=== PATIENT | male | born 1935 | race Caucasian/White ===

== ENCOUNTER 2020-11-15 13:06 | Observation (INO) | payer MEDICARE ==
[2020-11-15 14:39] LABS: ALT (SGPT) 37 U/L (8-55); AST (SGOT) 41 U/L (5-34); Albumin 3.9 g/dL (3.4-4.8); Alkaline Phosphatase 50 U/L (40-110); Anion Gap 14 mmol/L (10-20); BUN (Urea Nitrogen) 18 mg/dL (8.4-25.7); Bilirubin, Total 0.4 mg/dL (0.2-1.2); Calc. Creatinine Clearance 0 mL/min (70-130); Calcium 8.9 mg/dL (7.8-10.44); Carbon Dioxide 25 mmol/L (23-31); Chloride 104 mmol/L (98-107); Globulin 3.5 g/dL (2.4-3.5); Glucose 129 mg/dL (83-110); Potassium 4.2 mmol/L (3.5-5.1); Protein, Total 7.4 g/dL (5.8-8.1); Sodium 139 mmol/L (136-145)
[2020-11-15 14:44] LABS: Band 9 % (5-11); Hemoglobin 15.6 g/dL (14.0-18.0); Lymphocytes 18 % (21-51); MDiff Complete? YES; Mean Corpuscular Hemoglobin 31.4 pg (27.0-31.0); Mean Platelet Volume 7.3 fL (7.4-10.4); Monocytes 3 % (0-10); Neutrophil 66 % (42-75); Platelet Count 126 thou/uL (130-400); Platelet Morphology Comment Appears Adequate; RBC Distribution Width 11.7 % (11.5-14.5); Reactive Lymphocytes 4 % (0-10); Red Blood Cell (RBC) Count 4.97 mill/uL (4.70-6.10); White Blood Cell (WBC) Count 4.9 thou/uL (4.8-10.8)
[2020-11-15] MEDS ORDERED: cefTRIAXone\\ROCEPHIN 2 GM VIAL ONE (14:56)
[2020-11-15] MEDS ORDERED: Sodium Chloride 0.9% 1,000 ML ONE (14:56)
[2020-11-15] MEDS ORDERED: Acetaminophen 500 MG TAB ONE (14:56)
[2020-11-15] MEDS ORDERED: Sodium Chloride 0.9% 100 ML ONE (14:56)
[2020-11-15 15:43] LABS: Bilirubin Negative (Negative); Blood, Urine Trace (Negative); Glucose, Urine (Dipstick) Negative (Negative); Ketone, Urine Negative (Negative); Leukocyte Negative (Negative); Nitrite Negative (Negative); Protein, Urine (Dipstick) 100 mg/dL (Neg-Trace); Urobilinogen 0.2 mg/dL (Less than 2); pH, Urine 5.5 (5.0-9.0)
[2020-11-15 15:46] LABS: Bacteria/HPF 1+ HPF (None Seen); Clarity SL HAZY (Clear); Mucous/LPF 1+ LPF (<2+); RBC/HPF 0-3 HPF (0-3); Specific Gravity, Urine 1.028 (1.002-1.036); Squamous Epithelial 0-3 HPF (0-3); Transitional Epithelial 0-3 HPF (None Seen); WBC/HPF 0-3 HPF (0-3)
[2020-11-15] MEDS ORDERED: Sodium Chloride 0.9% 250 ML 250 ML ONE (15:46)
[2020-11-15] MEDS ORDERED: Azithromycin 500 MG VIAL ONE (15:46)
[2020-11-15 16:16] LABS: SARS-CoV-2 NAA Rapid Test DETECTED (NotDetected)
[2020-11-15 17:32] LABS: Lactic Acid 2.2 mmol/L (0.5-2.2)
[2020-11-15 18:43] VITALS: BMI 24.3
[2020-11-15] MEDS ORDERED: Sodium Chloride 0.65% Nasal 44 ML BOT EA NARE PRN (20:28)
[2020-11-15] MEDS ORDERED: Bisacodyl 10 MG SUPP PR PRN (20:28)
[2020-11-15] MEDS ORDERED: Ondansetron ODT 4 MG TAB SL PRN (20:28)
[2020-11-15] MEDS ORDERED: Calcium Carbonate 500 MG ChewTAB PO PRN (20:28)
[2020-11-15] MEDS ORDERED: Senokot S 8.6-50 MG TAB PO PRN (20:28)
[2020-11-15] MEDS ORDERED: cloNIDine 0.1 MG TAB PO PRN (20:28)
[2020-11-15] MEDS ORDERED: Ondansetron PF 4 MG/2 ML Vial IVP PRN (20:28)
[2020-11-15] MEDS ORDERED: Cepastat Lozenges 1 LOZ PO PRN (20:28)
[2020-11-15] MEDS ORDERED: Bisacodyl 5 MG TAB PO PRN (20:28)
[2020-11-15] MEDS ORDERED: Eucerin (Mineral Oil/Petrolatum,White) 30 gm Jar TOP PRN (20:28)
[2020-11-15] MEDS ORDERED: Loperamide HCl 2 MG CAP PO PRN ×2 (20:28)
[2020-11-15] MEDS ORDERED: Artificial Tear Sol 15 ML BOT EA EYE PRN (20:28)
[2020-11-15] MEDS ORDERED: Loratadine 10 MG TAB PO PRN (20:28)
[2020-11-15] MEDS: Famotidine 20 MG TAB PO SCH (21:40)
[2020-11-16 07:04] LABS: #Lymphocytes 1.2 thou/uL (1.20-3.40); #Monocytes 0.3 thou/uL (0.11-0.59); #Neutrophils 1.8 thou/uL (1.40-6.50); %Basophils 0.7 % (0.0-1.0); %Eosinophils 0.4 % (0.0-10.0); %Lymphocytes 36.3 % (21.0-51.0); %Neutrophils 54.6 % (42.0-75.0); Hemoglobin 13.9 g/dL (14.0-18.0); Mean Corpuscular HGB CONC 32.1 g/dL (32.0-36.0); Mean Corpuscular Hemoglobin 31.7 pg (27.0-31.0); Mean Corpuscular Volume 98.7 fL (78.0-98.0); Mean Platelet Volume 7.2 fL (7.4-10.4); Platelet Count 93 thou/uL (130-400); RBC Distribution Width 11.8 % (11.5-14.5); White Blood Cell (WBC) Count 3.3 thou/uL (4.8-10.8)
[2020-11-16 07:10] LABS: Anion Gap 10 mmol/L (10-20); BUN (Urea Nitrogen) 15 mg/dL (8.4-25.7); Calc. Creatinine Clearance 67 mL/min (70-130); Calcium 7.9 mg/dL (7.8-10.44); Carbon Dioxide 23 mmol/L (23-31); Chloride 108 mmol/L (98-107); Glucose 108 mg/dL (83-110); Potassium 3.7 mmol/L (3.5-5.1); Sodium 137 mmol/L (136-145)
[2020-11-16] MEDS: Aspirin 81 mg Enteric Coated Tablet PO SCH (09:24)
[2020-11-16] MEDS: Famotidine 20 MG TAB PO SCH ×2 (09:24→20:40)
[2020-11-16] MEDS: Enoxaparin Sodium 40 MG/0.4 ML SYRINGE SC SCH (09:24)
[2020-11-16] MEDS: Acetaminophen 325 MG TAB PO PRN (09:25)
[2020-11-17 06:46] LABS: #Lymphocytes 1.7 thou/uL (1.20-3.40); #Monocytes 0.2 thou/uL (0.11-0.59); %Basophils 0.9 % (0.0-1.0); %Eosinophils 0.1 % (0.0-10.0); %Lymphocytes 42.9 % (21.0-51.0); Hemoglobin 15.1 g/dL (14.0-18.0); Mean Corpuscular HGB CONC 32.6 g/dL (32.0-36.0); Mean Corpuscular Hemoglobin 31.7 pg (27.0-31.0); Mean Corpuscular Volume 97.2 fL (78.0-98.0); Platelet Count 92 thou/uL (130-400); RBC Distribution Width 11.5 % (11.5-14.5); Red Blood Cell (RBC) Count 4.76 mill/uL (4.70-6.10)
[2020-11-17 07:02] LABS: Anion Gap 12 mmol/L (10-20); BUN (Urea Nitrogen) 12 mg/dL (8.4-25.7); Calc. Creatinine Clearance 66 mL/min (70-130); Calcium 8.3 mg/dL (7.8-10.44); Carbon Dioxide 24 mmol/L (23-31); Chloride 103 mmol/L (98-107); Glucose 103 mg/dL (83-110); Potassium 3.4 mmol/L (3.5-5.1); Sodium 136 mmol/L (136-145)
[2020-11-17] MEDS: Enoxaparin Sodium 40 MG/0.4 ML SYRINGE SC SCH (08:00)
[2020-11-17] MEDS: Aspirin 81 mg Enteric Coated Tablet PO SCH (08:00)
[2020-11-17] MEDS: Famotidine 20 MG TAB PO SCH ×2 (08:00→20:14)
[2020-11-17] MEDS: Acetaminophen 325 MG TAB PO PRN (20:14)
[2020-11-18 05:44] LABS: Anion Gap 14 mmol/L (10-20); BUN (Urea Nitrogen) 13 mg/dL (8.4-25.7); Calc. Creatinine Clearance 68 mL/min (70-130); Calcium 8.5 mg/dL (7.8-10.44); Carbon Dioxide 26 mmol/L (23-31); Chloride 103 mmol/L (98-107); Glucose 107 mg/dL (83-110); Potassium 4.1 mmol/L (3.5-5.1); Sodium 139 mmol/L (136-145)
[2020-11-18 05:47] LABS: Band 10 % (5-11); Hemoglobin 15.2 g/dL (14.0-18.0); Lymphocytes 18 % (21-51); MDiff Complete? YES; Mean Corpuscular HGB CONC 32.3 g/dL (32.0-36.0); Mean Corpuscular Hemoglobin 31.1 pg (27.0-31.0); Mean Corpuscular Volume 96.4 fL (78.0-98.0); Mean Platelet Volume 8.6 fL (7.4-10.4); Monocytes 8 % (0-10); Neutrophil 63 % (42-75); Platelet Count 81 thou/uL (130-400); Platelet Morphology Comment Appears Decreased; RBC Distribution Width 11.4 % (11.5-14.5); RBC Morphology Normal; Reactive Lymphocytes 1 % (0-10); Red Blood Cell (RBC) Count 4.89 mill/uL (4.70-6.10); White Blood Cell (WBC) Count 3.2 thou/uL (4.8-10.8)
[2020-11-18] MEDS: Aspirin 81 mg Enteric Coated Tablet PO SCH (10:17)
[2020-11-18] MEDS: Enoxaparin Sodium 40 MG/0.4 ML SYRINGE SC SCH (10:17)
[2020-11-18] MEDS: Famotidine 20 MG TAB PO SCH ×2 (10:18→20:56)
[2020-11-18] MEDS: Acetaminophen 325 MG TAB PO PRN ×2 (13:03→20:56)
[2020-11-19 05:59] LABS: Bilirubin Negative (Negative); Blood, Urine Trace (Negative); Clarity Clear (Clear); Glucose, Urine (Dipstick) Negative (Negative); Ketone, Urine Negative (Negative); Leukocyte Negative (Negative); Nitrite Negative (Negative); Protein, Urine (Dipstick) 100 mg/dL (Neg-Trace); Urobilinogen 0.2 mg/dL (Less than 2); pH, Urine 5.5 (5.0-9.0)
[2020-11-19 06:01] LABS: Specific Gravity, Urine 1.031 (1.002-1.036); Urine Culture Reflex No No
[2020-11-19 06:09] LABS: Bacteria/HPF Rare-Few HPF (None Seen); RBC/HPF 0-3 HPF (0-3); Squamous Epithelial None Seen HPF (0-3); WBC/HPF 0-3 HPF (0-3)
[2020-11-19] MEDS: Aspirin 81 mg Enteric Coated Tablet PO SCH (10:06)
[2020-11-19] MEDS: Enoxaparin Sodium 40 MG/0.4 ML SYRINGE SC SCH (10:07)
[2020-11-19] MEDS: Famotidine 20 MG TAB PO SCH ×2 (10:07→20:43)
[2020-11-19] MEDS: Acetaminophen 325 MG TAB PO PRN (17:41)
[2020-11-19] MEDS ORDERED: Azithromycin 250 MG TAB PO SCH (21:00)
[2020-11-20 05:41] LABS: #Monocytes 0.2 thou/uL (0.11-0.59); #Neutrophils 2.1 thou/uL (1.40-6.50); %Basophils 0.6 % (0.0-1.0); %Eosinophils 0.3 % (0.0-10.0); %Lymphocytes 29.1 % (21.0-51.0); %Neutrophils 63.1 % (42.0-75.0); Hemoglobin 15.7 g/dL (14.0-18.0); Mean Corpuscular HGB CONC 31.7 g/dL (32.0-36.0); Mean Corpuscular Hemoglobin 31.6 pg (27.0-31.0); Mean Corpuscular Volume 99.5 fL (78.0-98.0); Mean Platelet Volume 7.8 fL (7.4-10.4); Platelet Count 116 thou/uL (130-400); RBC Distribution Width 12.1 % (11.5-14.5); Red Blood Cell (RBC) Count 4.97 mill/uL (4.70-6.10); White Blood Cell (WBC) Count 3.3 thou/uL (4.8-10.8)
[2020-11-20 05:55] LABS: Anion Gap 15 mmol/L (10-20); BUN (Urea Nitrogen) 20 mg/dL (8.4-25.7); Calc. Creatinine Clearance 60 mL/min (70-130); Calcium 8.8 mg/dL (7.8-10.44); Carbon Dioxide 25 mmol/L (23-31); Chloride 103 mmol/L (98-107); Glucose 128 mg/dL (83-110); Potassium 3.8 mmol/L (3.5-5.1); Sodium 139 mmol/L (136-145)
[2020-11-20] MEDS ORDERED: Dexamethasone 1 MG TAB PO SCH (09:15)
[2020-11-20] MEDS ORDERED: Dexamethasone 4 MG TAB PO SCH (09:15)
[2020-11-20] MEDS: Aspirin 81 mg Enteric Coated Tablet PO SCH (09:56)
[2020-11-20] MEDS: Famotidine 20 MG TAB PO SCH (09:56)
[2020-11-20 13:38] VITALS: TEMP 98.4
[2020-11-20 16:09] VITALS: BP 125/63
[2020-11-21] MEDS ORDERED: Dexamethasone 4 MG TAB PO SCH (08:00)
== END 2020-11-20 14:11 | disposition swing bed, planned readmission (89) ==
LOC: NAV ERS 13:06 → NAV ACUTE 17:50
PROVIDERS: ADMIT Family Medicine; ATTEND Family Medicine
DX: U07.1 COVID-19 (principal); J12.82 Pneumonia due to coronavirus disease 2019; R53.1 Weakness; D69.6 Thrombocytopenia, unspecified; R42 Dizziness and giddiness; Z86.73 Personal history of transient ischemic attack (TIA), and cerebral infarction without residual deficits; Z79.82 Long term (current) use of aspirin; W19.XXXA Unspecified fall, initial encounter
CPT/HCPCS: 36415; 70450; 71045; 80048; 80053; 81001; 81003; 81015; 83605; 84484; 85025; 87040; 93005; 94640; 96365; 96367; 96372; G0378; J0456; J0696; J1650; J3490; J7050; J7620; J8540; U0002

== ENCOUNTER 2020-11-20 12:35 | Inpatient (IN) | payer MEDICARE ==
[2020-11-20] MEDS ORDERED: Artificial Tear Sol 15 ML BOT EA EYE PRN (16:20)
[2020-11-20] MEDS ORDERED: Bisacodyl 5 MG TAB PO PRN (16:21)
[2020-11-20] MEDS ORDERED: Bisacodyl 10 MG SUPP PR PRN (16:22)
[2020-11-20] MEDS ORDERED: Calcium Carbonate 500 MG ChewTAB PO PRN (16:23)
[2020-11-20] MEDS ORDERED: Cepastat Lozenges 1 LOZ PO PRN (16:23)
[2020-11-20] MEDS ORDERED: cloNIDine 0.1 MG TAB PO PRN (16:24)
[2020-11-20] MEDS ORDERED: Loperamide HCl 2 MG CAP PO PRN ×2 (16:26→16:28)
[2020-11-20] MEDS ORDERED: Loratadine 10 MG TAB PO PRN (16:28)
[2020-11-20] MEDS ORDERED: Eucerin (Mineral Oil/Petrolatum,White) 30 gm Jar TOP PRN (16:30)
[2020-11-20] MEDS ORDERED: Ondansetron PF 4 MG/2 ML Vial IVP PRN (16:31)
[2020-11-20] MEDS ORDERED: Senokot S 8.6-50 MG TAB PO PRN (16:32)
[2020-11-20] MEDS ORDERED: Sodium Chloride 0.65% Nasal 44 ML BOT EA NARE PRN (16:35)
[2020-11-20] MEDS: Apixaban 2.5 MG TAB PO SCH (21:43)
[2020-11-20] MEDS: Famotidine 20 MG TAB PO SCH (21:43)
[2020-11-21] MEDS: Dexamethasone 4 MG TAB PO SCH (09:34)
[2020-11-21] MEDS: Apixaban 2.5 MG TAB PO SCH ×2 (09:35→21:42)
[2020-11-21] MEDS: Aspirin 81 mg Enteric Coated Tablet PO SCH (09:35)
[2020-11-21] MEDS: Famotidine 20 MG TAB PO SCH ×2 (09:35→21:42)
[2020-11-21] MEDS: Acetaminophen 325 MG TAB PO PRN (21:42)
[2020-11-22] MEDS: Apixaban 2.5 MG TAB PO SCH ×2 (08:38→21:51)
[2020-11-22] MEDS: Dexamethasone 4 MG TAB PO SCH (08:38)
[2020-11-22] MEDS: Famotidine 20 MG TAB PO SCH ×2 (08:38→21:51)
[2020-11-22] MEDS: Aspirin 81 mg Enteric Coated Tablet PO SCH (08:38)
[2020-11-22] MEDS ORDERED: Benzonatate 100 MG CAP PO PRN (20:10)
[2020-11-23 06:49] LABS: #Lymphocytes 0.7 thou/uL (1.20-3.40); #Monocytes 0.5 thou/uL (0.11-0.59); #Neutrophils 7.4 thou/uL (1.40-6.50); %Basophils 0.3 % (0.0-1.0); %Lymphocytes 8.2 % (21.0-51.0); %Monocytes 5.7 % (0.0-10.0); %Neutrophils 85.8 % (42.0-75.0); Hemoglobin 15.5 g/dL (14.0-18.0); Mean Corpuscular HGB CONC 32.9 g/dL (32.0-36.0); Mean Corpuscular Hemoglobin 32.2 pg (27.0-31.0); Mean Corpuscular Volume 97.8 fL (78.0-98.0); Mean Platelet Volume 8.2 fL (7.4-10.4); Platelet Count 180 thou/uL (130-400); RBC Distribution Width 11.7 % (11.5-14.5); Red Blood Cell (RBC) Count 4.83 mill/uL (4.70-6.10); White Blood Cell (WBC) Count 8.6 thou/uL (4.8-10.8)
[2020-11-23 07:02] LABS: Anion Gap 14 mmol/L (10-20); BUN (Urea Nitrogen) 27 mg/dL (8.4-25.7); Calc. Creatinine Clearance 70 mL/min (70-130); Calcium 9.2 mg/dL (7.8-10.44); Carbon Dioxide 25 mmol/L (23-31); Chloride 102 mmol/L (98-107); Glucose 143 mg/dL (83-110); Potassium 3.7 mmol/L (3.5-5.1); Sodium 137 mmol/L (136-145)
[2020-11-23] MEDS: Dexamethasone 4 MG TAB PO SCH (08:14)
[2020-11-23] MEDS: Apixaban 2.5 MG TAB PO SCH ×2 (08:14→21:11)
[2020-11-23] MEDS: Aspirin 81 mg Enteric Coated Tablet PO SCH (08:14)
[2020-11-23] MEDS: Famotidine 20 MG TAB PO SCH ×2 (08:14→21:11)
[2020-11-23] MEDS: Latanoprost 0.005% Ophth Soln 2.5 ml Bottle L EYE SCH (21:10)
[2020-11-23] MEDS: DorzolamidE/Timolol 2%/0.5% Ophth Soln 10 ml Bottle EA EYE SCH (21:10)
[2020-11-23] MEDS: Brimonidine Tartrate 0.2% Ophth Soln 5 ml Bottle L EYE SCH (21:11)
[2020-11-24] MEDS: Dexamethasone 4 MG TAB PO SCH (08:52)
[2020-11-24] MEDS: Acetaminophen 325 MG TAB PO PRN (09:44)
[2020-11-24] MEDS: Aspirin 81 mg Enteric Coated Tablet PO SCH (09:44)
[2020-11-24] MEDS: Famotidine 20 MG TAB PO SCH ×2 (09:44→20:56)
[2020-11-24] MEDS: Brimonidine Tartrate 0.2% Ophth Soln 5 ml Bottle L EYE SCH ×2 (09:45→20:56)
[2020-11-24] MEDS: Apixaban 2.5 MG TAB PO SCH ×2 (09:45→20:56)
[2020-11-24] MEDS: DorzolamidE/Timolol 2%/0.5% Ophth Soln 10 ml Bottle EA EYE SCH ×2 (09:45→20:57)
[2020-11-24] MEDS: Latanoprost 0.005% Ophth Soln 2.5 ml Bottle L EYE SCH (20:57)
[2020-11-25] MEDS: Aspirin 81 mg Enteric Coated Tablet PO SCH (09:09)
[2020-11-25] MEDS: Apixaban 2.5 MG TAB PO SCH ×2 (09:09→20:44)
[2020-11-25] MEDS: Dexamethasone 4 MG TAB PO SCH (09:09)
[2020-11-25] MEDS: Brimonidine Tartrate 0.2% Ophth Soln 5 ml Bottle L EYE SCH ×2 (09:10→20:44)
[2020-11-25] MEDS: DorzolamidE/Timolol 2%/0.5% Ophth Soln 10 ml Bottle EA EYE SCH ×2 (09:11→20:44)
[2020-11-25] MEDS: Famotidine 20 MG TAB PO SCH ×2 (09:11→20:44)
[2020-11-25] MEDS: Ondansetron ODT 4 MG TAB PO PRN (09:12)
[2020-11-25] MEDS: Latanoprost 0.005% Ophth Soln 2.5 ml Bottle L EYE SCH (20:44)
[2020-11-26] MEDS: Aspirin 81 mg Enteric Coated Tablet PO SCH (08:58)
[2020-11-26] MEDS: Brimonidine Tartrate 0.2% Ophth Soln 5 ml Bottle L EYE SCH ×2 (08:58→20:39)
[2020-11-26] MEDS: Apixaban 2.5 MG TAB PO SCH ×2 (08:58→20:38)
[2020-11-26] MEDS: Dexamethasone 4 MG TAB PO SCH (08:58)
[2020-11-26] MEDS: Famotidine 20 MG TAB PO SCH ×2 (08:59→20:39)
[2020-11-26] MEDS: DorzolamidE/Timolol 2%/0.5% Ophth Soln 10 ml Bottle EA EYE SCH ×2 (08:59→20:38)
[2020-11-26] MEDS: Ondansetron ODT 4 MG TAB PO PRN (20:38)
[2020-11-26] MEDS: Latanoprost 0.005% Ophth Soln 2.5 ml Bottle L EYE SCH (20:38)
[2020-11-26] MEDS: Acetaminophen 325 MG TAB PO PRN (20:39)
[2020-11-27] MEDS: Famotidine 20 MG TAB PO SCH ×2 (09:40→21:34)
[2020-11-27] MEDS: Apixaban 2.5 MG TAB PO SCH ×2 (09:40→21:34)
[2020-11-27] MEDS: Aspirin 81 mg Enteric Coated Tablet PO SCH (09:40)
[2020-11-27] MEDS: Brimonidine Tartrate 0.2% Ophth Soln 5 ml Bottle L EYE SCH ×2 (09:41→21:34)
[2020-11-27] MEDS: DorzolamidE/Timolol 2%/0.5% Ophth Soln 10 ml Bottle EA EYE SCH ×2 (09:41→21:34)
[2020-11-27] MEDS: Dexamethasone 4 MG TAB PO SCH (11:16)
[2020-11-27] MEDS: Latanoprost 0.005% Ophth Soln 2.5 ml Bottle L EYE SCH (21:34)
[2020-11-28] MEDS: Dexamethasone 4 MG TAB PO SCH (09:16)
[2020-11-28] MEDS: DorzolamidE/Timolol 2%/0.5% Ophth Soln 10 ml Bottle EA EYE SCH ×2 (09:17→22:09)
[2020-11-28] MEDS: Apixaban 2.5 MG TAB PO SCH ×2 (09:17→22:05)
[2020-11-28] MEDS: Brimonidine Tartrate 0.2% Ophth Soln 5 ml Bottle L EYE SCH ×2 (09:17→22:10)
[2020-11-28] MEDS: Aspirin 81 mg Enteric Coated Tablet PO SCH (09:17)
[2020-11-28] MEDS: Famotidine 20 MG TAB PO SCH ×2 (09:18→22:05)
[2020-11-28] MEDS ORDERED: Famotidine 20 MG TAB ONE (22:03)
[2020-11-28] MEDS: Latanoprost 0.005% Ophth Soln 2.5 ml Bottle L EYE SCH (22:09)
[2020-11-29 06:16] LABS: #Lymphocytes 1.6 thou/uL (1.20-3.40); #Monocytes 0.6 thou/uL (0.11-0.59); %Basophils 0.3 % (0.0-1.0); %Eosinophils 0.1 % (0.0-10.0); %Lymphocytes 14.3 % (21.0-51.0); %Monocytes 5.3 % (0.0-10.0); Hemoglobin 15.7 g/dL (14.0-18.0); Mean Corpuscular HGB CONC 33.2 g/dL (32.0-36.0); Mean Corpuscular Volume 96.3 fL (78.0-98.0); Mean Platelet Volume 6.5 fL (7.4-10.4); Platelet Count 296 thou/uL (130-400); RBC Distribution Width 11.4 % (11.5-14.5); Red Blood Cell (RBC) Count 4.92 mill/uL (4.70-6.10); White Blood Cell (WBC) Count 11.2 thou/uL (4.8-10.8)
[2020-11-29 06:30] LABS: Anion Gap 13 mmol/L (10-20); BUN (Urea Nitrogen) 34 mg/dL (8.4-25.7); Calc. Creatinine Clearance 63 mL/min (70-130); Calcium 8.9 mg/dL (7.8-10.44); Carbon Dioxide 24 mmol/L (23-31); Chloride 104 mmol/L (98-107); Glucose 126 mg/dL (83-110); Potassium 4.4 mmol/L (3.5-5.1); Sodium 137 mmol/L (136-145)
[2020-11-29] MEDS: Apixaban 2.5 MG TAB PO SCH ×2 (09:22→21:31)
[2020-11-29] MEDS: Aspirin 81 mg Enteric Coated Tablet PO SCH (09:22)
[2020-11-29] MEDS: Dexamethasone 4 MG TAB PO SCH (09:22)
[2020-11-29] MEDS: DorzolamidE/Timolol 2%/0.5% Ophth Soln 10 ml Bottle EA EYE SCH ×2 (09:22→21:32)
[2020-11-29] MEDS: Brimonidine Tartrate 0.2% Ophth Soln 5 ml Bottle L EYE SCH ×2 (09:23→21:32)
[2020-11-29] MEDS: Famotidine 20 MG TAB PO SCH ×2 (09:24→21:32)
[2020-11-29] MEDS: Latanoprost 0.005% Ophth Soln 2.5 ml Bottle L EYE SCH (21:32)
[2020-11-30] MEDS: Famotidine 20 MG TAB PO SCH ×2 (09:12→20:10)
[2020-11-30] MEDS: DorzolamidE/Timolol 2%/0.5% Ophth Soln 10 ml Bottle EA EYE SCH ×2 (09:12→20:13)
[2020-11-30] MEDS: Aspirin 81 mg Enteric Coated Tablet PO SCH (09:12)
[2020-11-30] MEDS: Dexamethasone 4 MG TAB PO SCH (09:12)
[2020-11-30] MEDS: Apixaban 2.5 MG TAB PO SCH ×2 (09:12→20:09)
[2020-11-30] MEDS: Brimonidine Tartrate 0.2% Ophth Soln 5 ml Bottle L EYE SCH ×2 (09:13→20:10)
[2020-11-30 12:27] LABS: Bilirubin Negative (Negative); Blood, Urine Trace (Negative); Clarity Clear (Clear); Glucose, Urine (Dipstick) Negative (Negative); Ketone, Urine Negative (Negative); Leukocyte Negative (Negative); Nitrite Negative (Negative); Protein, Urine (Dipstick) Negative (Neg-Trace); Urobilinogen 0.2 mg/dL (Less than 2); pH, Urine 5.5 (5.0-9.0)
[2020-11-30 12:33] LABS: Specific Gravity, Urine 1.027 (1.002-1.036)
[2020-11-30 12:34] LABS: RBC/HPF 0-3 HPF (0-3)
[2020-11-30 12:35] LABS: Squamous Epithelial 0-3 HPF (0-3); WBC/HPF 0-3 HPF (0-3); Yeast-Budding Rare HPF (None Seen)
[2020-11-30 12:36] LABS: Bacteria/HPF Rare-Few HPF (None Seen)
[2020-11-30] MEDS: Latanoprost 0.005% Ophth Soln 2.5 ml Bottle L EYE SCH (20:12)
[2020-12-01] MEDS: Brimonidine Tartrate 0.2% Ophth Soln 5 ml Bottle L EYE SCH ×2 (10:44→20:16)
[2020-12-01] MEDS: Apixaban 2.5 MG TAB PO SCH ×2 (10:46→20:16)
[2020-12-01] MEDS: Dexamethasone 4 MG TAB PO SCH (10:46)
[2020-12-01] MEDS: Aspirin 81 mg Enteric Coated Tablet PO SCH (10:46)
[2020-12-01] MEDS: Famotidine 20 MG TAB PO SCH ×2 (10:47→20:16)
[2020-12-01] MEDS: DorzolamidE/Timolol 2%/0.5% Ophth Soln 10 ml Bottle EA EYE SCH ×2 (10:50→20:16)
[2020-12-01] MEDS: Latanoprost 0.005% Ophth Soln 2.5 ml Bottle L EYE SCH (20:16)
[2020-12-02] MEDS: Famotidine 20 MG TAB PO SCH ×2 (08:56→20:37)
[2020-12-02] MEDS: Dexamethasone 4 MG TAB PO SCH (08:56)
[2020-12-02] MEDS: Apixaban 2.5 MG TAB PO SCH ×2 (08:56→20:37)
[2020-12-02] MEDS: Brimonidine Tartrate 0.2% Ophth Soln 5 ml Bottle L EYE SCH ×2 (08:57→20:37)
[2020-12-02] MEDS: Aspirin 81 mg Enteric Coated Tablet PO SCH (08:57)
[2020-12-02] MEDS: DorzolamidE/Timolol 2%/0.5% Ophth Soln 10 ml Bottle EA EYE SCH ×2 (08:58→20:37)
[2020-12-02] MEDS: Latanoprost 0.005% Ophth Soln 2.5 ml Bottle L EYE SCH (20:37)
[2020-12-03 01:17] VITALS: BMI 23.6
[2020-12-03 05:48] LABS: #Lymphocytes 1.5 thou/uL (1.20-3.40); #Monocytes 0.8 thou/uL (0.11-0.59); #Neutrophils 8.5 thou/uL (1.40-6.50); %Basophils 0.3 % (0.0-1.0); %Eosinophils 0.2 % (0.0-10.0); %Lymphocytes 13.6 % (21.0-51.0); %Monocytes 7.2 % (0.0-10.0); %Neutrophils 78.6 % (42.0-75.0); Hemoglobin 14.4 g/dL (14.0-18.0); Mean Corpuscular HGB CONC 32.9 g/dL (32.0-36.0); Mean Corpuscular Hemoglobin 32.3 pg (27.0-31.0); Platelet Count 237 thou/uL (130-400); RBC Distribution Width 11.3 % (11.5-14.5); Red Blood Cell (RBC) Count 4.47 mill/uL (4.70-6.10); White Blood Cell (WBC) Count 10.7 thou/uL (4.8-10.8)
[2020-12-03] MEDS: Famotidine 20 MG TAB PO SCH ×2 (08:22→20:39)
[2020-12-03] MEDS: Aspirin 81 mg Enteric Coated Tablet PO SCH (08:22)
[2020-12-03] MEDS: Dexamethasone 4 MG TAB PO SCH (08:23)
[2020-12-03] MEDS: Apixaban 2.5 MG TAB PO SCH ×2 (08:23→20:39)
[2020-12-03] MEDS: DorzolamidE/Timolol 2%/0.5% Ophth Soln 10 ml Bottle EA EYE SCH ×2 (08:24→20:40)
[2020-12-03] MEDS: Brimonidine Tartrate 0.2% Ophth Soln 5 ml Bottle L EYE SCH ×2 (08:24→20:41)
[2020-12-03] MEDS: Latanoprost 0.005% Ophth Soln 2.5 ml Bottle L EYE SCH (20:41)
[2020-12-04] MEDS: Apixaban 2.5 MG TAB PO SCH ×2 (08:40→20:22)
[2020-12-04] MEDS: Dexamethasone 4 MG TAB PO SCH (08:40)
[2020-12-04] MEDS: Famotidine 20 MG TAB PO SCH ×2 (08:40→20:22)
[2020-12-04] MEDS: Aspirin 81 mg Enteric Coated Tablet PO SCH (08:40)
[2020-12-04] MEDS: DorzolamidE/Timolol 2%/0.5% Ophth Soln 10 ml Bottle EA EYE SCH ×2 (08:41→20:23)
[2020-12-04] MEDS: Brimonidine Tartrate 0.2% Ophth Soln 5 ml Bottle L EYE SCH ×2 (08:42→20:23)
[2020-12-04] MEDS: Latanoprost 0.005% Ophth Soln 2.5 ml Bottle L EYE SCH (20:22)
[2020-12-05] MEDS: DorzolamidE/Timolol 2%/0.5% Ophth Soln 10 ml Bottle EA EYE SCH ×2 (08:22→20:09)
[2020-12-05] MEDS: Aspirin 81 mg Enteric Coated Tablet PO SCH (08:22)
[2020-12-05] MEDS: Brimonidine Tartrate 0.2% Ophth Soln 5 ml Bottle L EYE SCH ×2 (08:22→20:07)
[2020-12-05] MEDS: Famotidine 20 MG TAB PO SCH ×2 (08:22→20:07)
[2020-12-05] MEDS: Apixaban 2.5 MG TAB PO SCH ×2 (08:22→20:07)
[2020-12-05] MEDS: Latanoprost 0.005% Ophth Soln 2.5 ml Bottle L EYE SCH (20:08)
[2020-12-06] MEDS: Famotidine 20 MG TAB PO SCH (08:56)
[2020-12-06] MEDS: Apixaban 2.5 MG TAB PO SCH (08:56)
[2020-12-06] MEDS: Aspirin 81 mg Enteric Coated Tablet PO SCH (08:56)
[2020-12-06] MEDS: DorzolamidE/Timolol 2%/0.5% Ophth Soln 10 ml Bottle EA EYE SCH (08:57)
[2020-12-06] MEDS: Brimonidine Tartrate 0.2% Ophth Soln 5 ml Bottle L EYE SCH (08:57)
[2020-12-06 16:23] VITALS: BP 117/55; TEMP 98.3
== END 2020-12-06 16:20 | DRG 177 ==
LOC: NAV ACUTE 12:35 → UNDOADMIN 12:35 → NAV ACUTE 11-29 02:45
PROVIDERS: ADMIT Family Medicine; ATTEND Family Medicine
PROC: 8E0ZXY6 Isolation (ICD-10-PCS; principal; 2020-11-20)
DX: U07.1 COVID-19 (principal); J12.82 Pneumonia due to coronavirus disease 2019; J96.01 Acute respiratory failure with hypoxia; D69.6 Thrombocytopenia, unspecified; H40.9 Unspecified glaucoma; D69.59 Other secondary thrombocytopenia; T45.515A Adverse effect of anticoagulants, initial encounter; R73.9 Hyperglycemia, unspecified; D72.829 Elevated white blood cell count, unspecified; T38.0X5A Adverse effect of glucocorticoids and synthetic analogues, initial encounter; Z90.49 Acquired absence of other specified parts of digestive tract; Z79.82 Long term (current) use of aspirin
CPT/HCPCS: 36415; 80048; 81003; 81015; 85025; J8540; Q0162